=== PATIENT | female | born 1965 | race African-American/Black ===

== ENCOUNTER 2016-10-03 12:08 | Emergency (ER) | payer OTHER, MEDICAID ==
[~2016-10-03] VITALS: Ht 172.7 cm; Wt 80.0 kg
[2016-10-03] MEDS: ONDANSETRON 4MG ODT PO ONE (13:53)
[2016-10-03] MEDS: MORPHINE SULFATE 10 MG/ML CPJ IM ONE (13:53)
[2016-10-03 17:11] VITALS: BP 152/87
== END 2016-10-03 18:26 | disposition home or self-care (01) ==
LOC: ER 12:40
DX: M54.30 Sciatica, unspecified side (principal); M79.605 Pain in left leg
CPT/HCPCS: 96372; 99283; J2270; Q0162; Z7610